=== PATIENT | female | born 1955 | race Caucasian/White ===

== ENCOUNTER → 2017-06-03 | Outpatient (CLI) | payer MEDICAID | LOC: BRMIMAGING 10:08 | PROVIDERS: ATTEND Family Medicine | DX: M19.071 Primary osteoarthritis, right ankle and foot (principal); M77.31 Calcaneal spur, right foot | CPT/HCPCS: 73630-PO; G0202 ==

== ENCOUNTER → 2017-06-10 | Outpatient (CLI) | payer MEDICAID | LOC: BRMIMAGING 11:03 | PROVIDERS: ATTEND Family Medicine | DX: M19.072 Primary osteoarthritis, left ankle and foot (principal) | CPT/HCPCS: 73610-PO ==